=== PATIENT | male | born 1965 | race Caucasian/White ===

== ENCOUNTER 2017-01-04 07:16 | Emergency (ER) | payer MEDICAID ==
[~2017-01-04] VITALS: Ht 170.2 cm; Wt 79.5 kg
[2017-01-04 11:13] VITALS: BP 122/82
== END 2017-01-04 11:17 | disposition home or self-care (01) ==
LOC: EMS 07:18
DX: F11.20 Opioid dependence, uncomplicated (principal); F11.90 Opioid use, unspecified, uncomplicated; F19.90 Other psychoactive substance use, unspecified, uncomplicated; F17.210 Nicotine dependence, cigarettes, uncomplicated
CPT/HCPCS: 99281

== ENCOUNTER 2017-08-02 14:22 | Emergency (ER) | payer MEDICAID ==
[~2017-08-02] VITALS: Ht 172.7 cm; Wt 63.6 kg
[2017-08-02] MEDS ORDERED: LIDOCAINE HCL 1% 10 ML VIAL INJ ONE (18:30)
[2017-08-02] MEDS ORDERED: POVIDONE-IODINE 10% 120 ML SOLUTION TP ONE (18:30)
[2017-08-02] MEDS ORDERED: LIDOCAINE HCL/PF 1% 2 ML VIAL IM ONE (18:30)
[2017-08-02] MEDS ORDERED: CefTRIAXone SODIUM 1 GM/VIAL IM ONE (18:30)
[2017-08-02] MEDS ORDERED: ACETAMINOPHEN 500 MG TABLET PO ONE (18:45)
[2017-08-02 19:01] VITALS: BP 125/71
[2017-08-02] MEDS ORDERED: BACITRACIN 0.9 GM PACKET OINTMENT TP ONE (19:30)
== END 2017-08-02 20:15 | disposition home or self-care (01) ==
LOC: EMS 14:29
DX: L02.414 Cutaneous abscess of left upper limb (principal); L02.415 Cutaneous abscess of right lower limb; L03.114 Cellulitis of left upper limb; L03.115 Cellulitis of right lower limb; F11.90 Opioid use, unspecified, uncomplicated; F15.90 Other stimulant use, unspecified, uncomplicated; F17.210 Nicotine dependence, cigarettes, uncomplicated
CPT/HCPCS: 10061; 96372; 99284; J0696; J3490 ×2; 10060; 99283